=== PATIENT | male | born 1980 | race Hispanic/Latino ===

== ENCOUNTER 2022-07-20 08:04 | Day surgery (SDC) | payer BC ==
[2022-07-18 14:38] VITALS: BP 164/82
[~2022-07-20] VITALS: Ht 188 cm; Wt 113.3 kg
[2022-07-20] VITALS (16 sets, daily range): BP systolic 90–156; BP diastolic 44–103
[~2022-07-20 08:04] MED LIST: BACITRACIN 28.4 GM OINT TP ONE; BUPIVACAINE/PF 0.25% 30ML VIAL IJ ONE; CITA-107 PO; LIDOCAINE HCL 1% 20 ML VIAL ONE; OMEP40CA21 PO; TEST200V21 IM
[2022-07-20] MEDS ORDERED: LACTATED RINGERS 1000ML 1,000 ML IV ONE (09:14)
[2022-07-20] MEDS ORDERED: LIDOCAINE HCL MPF 1% 5ML VIAL ONE (09:35)
[2022-07-20] MEDS ORDERED: DEXAMETHASONE SOD PHOSPHATE 4 MG/ML 1ML VIAL ONE (09:35)
[2022-07-20] MEDS ORDERED: PROPOFOL 10 MG/ML 20ML VIAL IV ONE ×2 (09:36→09:42)
[2022-07-20] MEDS ORDERED: ONDANSETRON 4MG INJ ONE (09:36)
[2022-07-20] MEDS ORDERED: MIDAZOLAM HCL 1 MG/ML 2ML VIAL ONE (09:36)
[2022-07-20] MEDS ORDERED: FENTANYL CITRATE PF 50 MCG/1 ML 2ML VIAL ONE (09:36)
[2022-07-20] MEDS: CEFAZOLIN SODIUM 2 GM VIAL IVPB SCH ×2 (09:40→09:51)
[2022-07-20] MEDS ORDERED: LIDOCAINE HCL 1% 20 ML VIAL INJ ONE (10:00)
== END 2022-07-20 11:50 | disposition home or self-care (01) ==
LOC: DAH 08:04
PROVIDERS: ATTEND Urology
DX: Z30.2 Encounter for sterilization (principal); Z20.822 Contact with and (suspected) exposure to COVID-19; Z79.899 Other long term (current) drug therapy
CPT/HCPCS: 87426; 55250; J1100; A4510; A4663; J7120 ×2; J3010; J3490 ×2; J2250; J2704 ×2; J2405; J0690; A4215; A4223; A4222; A4221; A4600